=== PATIENT | male | born 1955 | race Caucasian/White ===

== ENCOUNTER 2021-03-10 19:43 | Inpatient (IN) | payer MEDICARE, OTHER ==
[~2021-03-10] VITALS: Ht 182.9 cm; Wt 87.7 kg
[~2021-03-10 19:43] MED LIST: ACET-2605 PO; ACET-868 PO; ALEN70TA3 PO; AMAN100T PO; AMIN30LI25 PO; AMLO5TAB4 PO; ASCO-352 PO; BISA10SU8 RC; CITA40TA22 PO; DALF10TA PO; DOCU-270 PO; ENOX30DI SQ; MAGN400O21 PO; MIRT30TA7 PO; MULT1TAB11 PO; NA P133E RC; NUTR1PAC14 PO; PANT40TA2 PO; TAMS-12 PO; ZINC220T4 PO
[2021-03-10] MEDS ORDERED: IV NS 0.9% 1,000 ML BAG IV ONE ×2 (20:00→21:30)
--- NOTE | 2021-03-10 20:05 | NUR ---
PATIENT CAME TO ER BED 6 BIBRA C/O LOW BLOOD PRESSURE FROM THE [facility]. PATIENT ALSO STATES THAT HE IS "FEELING SICK" PATIENT IS ALERT AND ORIENTED x3. DENIES SHORTNESS OF BREATH. PATIENT IS CONNECTED TO THE FILLER BLOCK INSERTER REMOVER.
--- NOTE | 2021-03-10 20:18 | NUR ---
COVID SWABBED, GIVEN TO COMBINATION WELDER.
--- NOTE | 2021-03-10 20:18 | NUR ---
EUCLID OPERATOR AT BEDSIDE FOR BLOOD WORK.
--- NOTE | 2021-03-10 20:19 | NUR ---
RADIOLOGY AT BEDSIDE
--- NOTE | 2021-03-10 20:47 | NUR ---
BOX TURNER AT BEDSIDE FOR BLOOD DRAW
[2021-03-10 20:57] LABS: BASOPHILS % (AUTO) 0.2 % (0.0-2.0); HEMATOCRIT 37 % (39-51); HEMOGLOBIN 11.7 g/dL (13.5-17.5); LYMPHOCYTES # (AUTO) 0.3 /CMM (0.8-4.8); MEAN CORPUSCULAR HGB CONC 32 g/dl (31.0-36.0); MEAN CORPUSCULAR VOLUME 91 fL (80-96); MONOCYTES # (AUTO) 0.2 /CMM (0.1-1.30); MONOCYTES % (AUTO) 1.2 % (2.0-12.0); NEUTROPHILS # (AUTO) 14.4 /CMM (1.8-8.9); NEUTROPHILS % (AUTO) 96.6 % (43.0-81.0); PLATELET COUNT (AUTO) 160 /CMM (150-450); RED BLOOD CELL COUNT(AUTO) 4.05 MIL/uL (4.5-6.0); WHITE BLOOD COUNT (AUTO) 14.9 K/uL (4.3-11.0)
[2021-03-10 21:09] LABS: CALCIUM, SERUM 8.8 mg/dL (8.5-10.1); CARBON DIOXIDE 20 mmol/L (21-32); CHLORIDE 103 mmol/L (98-107); CREATININE 2.8 mg/dL (0.6-1.3); GLUCOSE 106 mg/dL (74-106); POTASSIUM 3.9 mmol/L (3.5-5.1); SODIUM SERUM 137 mmol/L (136-145); UREA NITROGEN, BLOOD 49 mg/dL (7-18)
[2021-03-10 21:14] LABS: ALANINE AMINOTRANSFERASE 15 U/L (12-78); ALBUMIN 2.6 g/dL (3.4-5.0); ALKALINE PHOSPHATASE 230 U/L (46-116); ASPARTATE AMINOTRANSFERASE 24 U/L (15-37); BILIRUBIN,DIRECT 0.3 mg/dL (0.0-0.2); BILIRUBIN,TOTAL 0.6 mg/dL (0.2-1.0); TOTAL PROTEIN, SERUM 7.1 g/dL (6.4-8.2)
[2021-03-10] MEDS ORDERED: LEVOFLOXACIN 750 MG /D5W 150ML 150 ML IV ONE ×2 (21:22→21:30)
[2021-03-10] MEDS ORDERED: VANCOMYCIN 1 GM in IV D5W 250 ML IV ONE (21:30)
[2021-03-10 21:36] LABS: BILIRUBIN,URINE SMALL (NEGATIVE); COLOR,URINE DARK YELLOW (YELLOW); LEUKOCYTE ESTERASE ,URINE Large (NEGATIVE); NITRITE, URINE Negative (NEGATIVE); PROTEIN,URINE >=300 mg/dl (NEGATIVE); UGLUCOSE Negative (NEGATIVE); UROBILINOGEN,URINE 0.2 EU/dL (0.2)
[2021-03-10 21:37] LABS: PH,URINE >9.0 (5.0-8.0)
[2021-03-10 21:44] LABS: BACTERIA,URINE Many /HPF (None Seen); SQUAMOUS EPITHELIAL CELL,UR Few /HPF (None Seen)
[2021-03-10] MEDS ORDERED: VANCOMYCIN 1 GM VIAL ONE (21:47)
--- NOTE | 2021-03-10 21:50 | NUR ---
DR. MORATAYA NOTIFIED OF LOW BLOOD PRESSURE, ORDERED TO GIVE IV 1000ML OF NORMAL SALINE BOLUS. WILL CARRY OUT ORDERS.
--- NOTE | 2021-03-10 21:54 | NUR ---
PATIENT IS ITCHING FROM SITE OF LEVAQUIN. LEVAQUIN STOPPED PER DR. MORATAYA'S ORDER.
[2021-03-10] MEDS ORDERED: HYDROCODONE/APAP 5/325MG TABLET PO PRN (22:00)
[2021-03-10] MEDS ORDERED: ACETAMINOPHEN 325 MG TABLET PO PRN (22:00)
[2021-03-10] MEDS ORDERED: Z GUARD REMEDY 2 OZ OINT TP PRN (22:00)
[2021-03-10] MEDS ORDERED: TEMAZEPAM 15 MG CAPSULE PO PRN (22:00)
[2021-03-10] MEDS ORDERED: MORPHINE SULFATE INJ 2 MG/ML DISP.SYRIN IV PRN (22:00)
[2021-03-10] MEDS ORDERED: MAGNESIUM HYDROXIDE 30 ML UDC PO PRN (22:00)
[2021-03-10] MEDS ORDERED: ONDANSETRON HCL/PF 4 MG/2 ML VIAL IVP PRN (22:00)
[2021-03-10] MEDS ORDERED: MAG HYDROX/AL HYDROX/SIMETH 30 ML UDC PO PRN (22:00)
[2021-03-10] MEDS ORDERED: IV NS 0.9% 500 ML BAG IV ONE (22:30)
[2021-03-10] MEDS: IV NS 0.9% 1,000 ML IV PRN (23:06)
--- NOTE | 2021-03-10 23:06 | NUR ---
ATTEMPTED TO CALL FOR REPORT, NURSE IS NOT AVAILABLE AND IS COMING FROM [facility]. STAFF STATES THAT I WILL RECEIVE A CALLBACK.
--- NOTE | 2021-03-10 23:22 | NUR ---
REPORT GIVEN TO GENI TRIVEDI FOR SOREN.
[2021-03-10 23:30] VITALS: BP 76/52
--- NOTE | 2021-03-10 23:30 | NUR ---
NREMT NOTE ADMIT PATIENT 66 YEAR OLD MALE TO ICU UNIT FROM ER WHO CAME FROM [facility] FOR LOW BP,WITH ADMIT DIAGNOSIS: SEPSIS SECONDARY TO UTI POA,ALERT ORIENTEDX2 VERBALLY RESPONSIVE ON 4L OXYGEN VIA NASAL CANNULA, O2:98% IV SITE ARE LEFT AND RIGHT HAND ON IV HYDRATION NS 100 CC/HR,PATIENT HAD [place] SUPRAPUBIC CATHETER URINE DRAINING YELLOW BY GRAVITY,SACRUM AREA DTI AND LEFT AND RIGHT BUTTOCKS NON CARLI [place] REDNESS,LEFT HEEL PRESSURE INJURY SAFETY MEASURE IMPLEMENT BED IN LOW POSITON AND LOCKED CONTINUE TO MONITOR.
--- NOTE | 2021-03-10 23:46 | NUR ---
PATIENT TAKEN UP TO ASSIGNED ROOM FOR SOREN.
[2021-03-10 23:47] VITALS: BP 91/37
[2021-03-11] VITALS (85 sets, daily range): BP systolic 74–149; BP diastolic 26–93
--- NOTE | 2021-03-11 00:32 | NUR ---
RN NOTE RECEIVED LAB REPORT LACTIC ACID IS 4.5 NOTIFIED DNP MARIO VENEGAS WITH NO NEW ORDER CONTINUE TO MONITOR
[2021-03-11] MEDS ORDERED: NOREPINEPHRINE 8MG/250ML RTU 250 ML IV ONE (00:43)
[2021-03-11] MEDS: IV NS 0.9% 1,000 ML IV PRN ×4 (00:45→21:44)
[2021-03-11] MEDS: NOREPINEPHRINE 8 MG in IV NS 0.9% 242 ML IV PRN ×2 (00:48→17:28)
[2021-03-11] MEDS ORDERED: CEFEPIME 1 GM in IV D5W 50 ML IV SCH (01:30)
[2021-03-11] MEDS ORDERED: CEFEPIME 1 GM VIAL IV ONE (01:30)
[2021-03-11] MEDS ORDERED: CEFEPIME 1 GM VIAL ONE (01:36)
[2021-03-11 04:35] LABS: EOSINOPHILS % (AUTO) 0.1 % (0.0-6.0); HEMATOCRIT 32 % (39-51); HEMOGLOBIN 10.3 g/dL (13.5-17.5); LYMPHOCYTES # (AUTO) 0.7 /CMM (0.8-4.8); MEAN CORPUSCULAR HGB CONC 32 g/dl (31.0-36.0); MEAN CORPUSCULAR VOLUME 89 fL (80-96); MONOCYTES # (AUTO) 1.6 /CMM (0.1-1.30); MONOCYTES % (AUTO) 4.4 % (2.0-12.0); NEUTROPHILS # (AUTO) 32.9 /CMM (1.8-8.9); NEUTROPHILS % (AUTO) 93.5 % (43.0-81.0); PLATELET COUNT (AUTO) 178 /CMM (150-450); RED BLOOD CELL COUNT(AUTO) 3.61 MIL/uL (4.5-6.0)
[2021-03-11 04:52] LABS: CALCIUM, SERUM 8.5 mg/dL (8.5-10.1); CARBON DIOXIDE 21 mmol/L (21-32); CHLORIDE 105 mmol/L (98-107); CHOLESTEROL 64 mg/dL (<200); CREATININE 2.3 mg/dL (0.6-1.3); GLUCOSE 120 mg/dL (74-106); LDL 10 mg/dL (0-99); MAGNESIUM 1.8 mg/dL (1.8-2.4); PHOSPHORUS 4.1 mg/dL (2.5-4.9); POTASSIUM 4.3 mmol/L (3.5-5.1); SODIUM SERUM 138 mmol/L (136-145); THYROID STIMULATING HORMONE 1.067 uIU/mL (0.358-3.74); TRIGLYCERIDES 240 mg/dL (30-150); UREA NITROGEN, BLOOD 47 mg/dL (7-18)
[2021-03-11 04:54] LABS: HDL CHOLESTEROL < 10 mg/dL (40-60)
[2021-03-11 04:57] LABS: IRON, SERUM 6 ug/dl (50-175); TOTAL IRON BINDING CAPACITY 144 ug/dl (250-450)
[2021-03-11 05:18] LABS: WHITE BLOOD COUNT (AUTO) 35.2 K/uL (4.3-11.0)
--- NOTE | 2021-03-11 05:24 | NUR ---
RN NOTE RECEIVED LAB RESULTS WBC 35.2 NOTIFIED AINSLEY VENEGAS WITH NO NEW ORDER CONTINUE TO MONITOR.
[2021-03-11 05:59] LABS: BAND % (MANUAL) 17 % (0.0-5.0); LYMPHOCYTES % (MANUAL) 2 % (16-48); MONOCYTES % (MANUAL) 3 % (0-11.0); NEUTROPHILS % (MANUAL) 78 (42-76)
--- NOTE | 2021-03-11 06:30 | NUR ---
RN NOTE CALLED PATIENT SISTER SHAYLA AND INFORMED PATIENT SITUATION AND A NEW ORDER MIDLINE INSERTION SHE AGREES FOR THAT CONTINUE TO MONITOR.
--- NOTE | 2021-03-11 07:05 | NUR ---
RN CLOSING NOTE PATIENT REMAINS ON ALERT ORIENTED X2 ON 4L OXYGEN VIA NASAL CANNULA O2:100% ON LEVOPHED 0.07 MCG/KG ON IV HYDRATION NS 100CC/HR SUPRAPUBIC CATHETER IN PLACE URINE DRAINING YELLOW AND CLEAR NO SOB NOT ACUTE DISTRESS NOTED ALL DUE MEDS GIVEN MD ORDERED KEPT CLEAN AND DRY ALL THE TIME,ENDORSE NEXT COMING SHIFT FOR CONTINUATION OF CARE.
[2021-03-11] MEDS ORDERED: CALC1TAB30 PO (07:30)
[2021-03-11] MEDS ORDERED: FERR325T23 PO (07:30)
[2021-03-11] MEDS ORDERED: CRAN425C6 PO (07:30)
[2021-03-11] MEDS ORDERED: METO25TA20 PO (07:30)
[2021-03-11] MEDS ORDERED: AMIN30LI2 PO (07:30)
[2021-03-11] MEDS ORDERED: ONDA4TAB5 PO (07:30)
[2021-03-11] MEDS ORDERED: ATOR10TA PO (07:30)
[2021-03-11] MEDS ORDERED: POLY17PO4 PO (07:30)
[2021-03-11] MEDS ORDERED: ACET-2605 PO (07:30)
[2021-03-11] MEDS ORDERED: ASPI-1169 PO (07:30)
[2021-03-11] MEDS ORDERED: FAMO20TA8 PO (07:30)
[2021-03-11] MEDS ORDERED: SENN-261 PO (07:30)
[2021-03-11] MEDS ORDERED: CRAN3875 PO (07:31)
--- NOTE | 2021-03-11 07:59 | NUR ---
WOUND CARE CONSULT: PT PRESENTS WITH SACRAL AND BUTTOCK SCARRING, INCONTINENCE ASSOCIATED SKIN DAMAGE TO LOWER BUTTOCKS, RT HEEL AND LEFT ANKLE WOUNDS, PRESENT O ADMISSION. RECOMMEND DPM CONSULT. DR REED NOTIFIED OF CONSULT REQUEST. RECOMMENDATIONS MADE FOR SKIN PROTECTION. DISCUSSED WITH NURSING STAFF. MD IN AGREEMENT WITH PLAN OF CARE.
--- NOTE | 2021-03-11 08:00 | NUR ---
RN NOTES PATIENT SEEN AWAKE A/O X3, GIVEN QUESTIONS RIGHT ANSWERS, VERBALIZED UNDERSTANDING, VSS . BEDSIDE TELE MONITOR SHOWS SR , INFUSING NS AT 100 ML/HR, AND LEVOPHED 0.07 MCG/KG/HR INTACT. PATIENT HAS SUPRAPUBIC CATHETER DRAINING WELL. PATIENT HAS CONSENT SWALLOW EVALUATION , AND WOUND CONSULT. ALSO GETTING KIDNEY US AT THIS TIME. PATIENT MINIMAL ASSIST TURN AND REPOSTION IN THE BED. DUE MEDICATION ADMINISTERED, SUCTION, MOUTH CARE DONE. CALL LIGHT WITHIN TO REACH. WILL MONITORING.
[2021-03-11] MEDS: CLOTRIMAZOLE 1% 15 GM TUBE TP SCH ×2 (09:12→17:22)
[2021-03-11] MEDS: PANTOPRAZOLE 40 MG VIAL IV SCH (09:13)
[2021-03-11] MEDS: HEPARIN SODIUM, PORCINE 5000 UNITS/1 ML VIAL SQ SCH ×2 (09:15→21:08)
--- NOTE | 2021-03-11 09:30 | NUR ---
RN NOTES PATIENT HAS SWALLOW EVALUATION AT THIS TIME,PASSED, AND WILL BE SOFT DIET PER SE NURSE..
[2021-03-11] MEDS: HYDROCORTISONE SOD SUCCINATE 100 MG/2 ML VIAL IV SCH ×3 (09:39→21:07)
[2021-03-11 11:05] LABS: ABG BASE EXCESS -6.3 mmol/L; ABG OXYGEN SATURATION 98.2 % (92.0-98.5); ABG PCO2 26.7 mmHg (35.0-45.0); ABG PO2 111.2 mmHg (75.0-100.0); AaDO2 114.5 mmHg; COHb 0.2 % (0.5-1.5); MetHb 0.3 % (0.0-1.5); O2Hb 97.7 % (94.0-97.0); SITE, ABG Left Radial
[2021-03-11] MEDS: CEFEPIME 2 GM in IV D5W 100 ML IV SCH ×2 (11:10→23:10)
--- NOTE | 2021-03-11 11:17 | NUR ---
RN NOTES SEEN WOUND MD DR HUNTLEY PATIENT NEED WOUND DEBRIDEMENT, CONSENT SIGNED VIA PATIENT.
--- NOTE | 2021-03-11 11:44 | NUR ---
RN NOTES SEEN PATIENT VIA HOSPITALIST Dr SPENCE TO GET CONTINUED HOSPITALIZATION.
[2021-03-11] MEDS: FLUDROCORTISONE 0.1 MG TABLET PO SCH ×2 (12:41→17:21)
[2021-03-11] MEDS: VANCOMYCIN 1 GM in IV D5W 250 ML IV SCH (15:32)
--- NOTE | 2021-03-11 16:15 | NUR ---
rn notes Picc line inserted via STOCK SHEETS CLEANER INSPECTOR Damian right upper arm 3 lumen, intact.
--- NOTE | 2021-03-11 16:34 | NUR ---
rn notes increased Levophed infusion 0.08 mcg/kg/hr bp 86/50, p-98, r-23. will monitoring.
--- NOTE | 2021-03-11 18:26 | NUR ---
RN NOTES PM CARE DONE, DUE MEDICATION ADMINISTERED, ASSIST EATING. PATIENT TOLERATED DINNER 100% , NO ACUTE RESPIRATORY DISTRESS, ASSIST TURN AND REPOSTION Q 2 HR. INFUSING NS @ 100ML/HR ON KRISTEN PICC LINE, AND LEVOPHED 0.08 MCG/KG/HR INTACT. CALL LIGHT WITHIN TO REACH. PATIENT REFUSED PAIN, SUPRAPUBIC CATH INFUSING YELLOW OUTPUT WITH WHITE SEDIMENTS. ENDORSED ONCOMING NURSE FOLLOW PLAN OF CARE.
--- NOTE | 2021-03-11 19:20 | NUR ---
ICU/CHARGE MACHINE OPERATOR RECIEVED REPORT FROM DAY NURSE. SEE FLOWSHEET FOR ASSESSMENT. SEE IV SPREAD SHEET FOR IV'S. PT HAS CALL LIGHT NO ACUTE DISTRESS SEEN. WILL MONITOR THIS PT.
--- NOTE | 2021-03-11 21:29 | NUR ---
ICU/COKE WORKER REPORT GIVEN TO SHIKHA BRINK FOR CONTINUATIVE CARE.
[2021-03-12] VITALS (82 sets, daily range): BP systolic 84–166; BP diastolic 27–93
[2021-03-12] MEDS: FLUDROCORTISONE 0.1 MG TABLET PO SCH ×4 (00:21→17:10)
[2021-03-12 04:32] LABS: BASOPHILS % (AUTO) 0.1 % (0.0-2.0); EOSINOPHILS % (AUTO) 0.3 % (0.0-6.0); HEMATOCRIT 27 % (39-51); LYMPHOCYTES # (AUTO) 0.7 /CMM (0.8-4.8); LYMPHOCYTES % (AUTO) 3.2 % (20.0-44.0); MEAN CORPUSCULAR HGB CONC 33 g/dl (31.0-36.0); MEAN CORPUSCULAR VOLUME 89 fL (80-96); MONOCYTES # (AUTO) 1.6 /CMM (0.1-1.30); MONOCYTES % (AUTO) 6.9 % (2.0-12.0); NEUTROPHILS % (AUTO) 89.5 % (43.0-81.0); PLATELET COUNT (AUTO) 147 /CMM (150-450); RED BLOOD CELL COUNT(AUTO) 3.08 MIL/uL (4.5-6.0); WHITE BLOOD COUNT (AUTO) 23.5 K/uL (4.3-11.0)
[2021-03-12 04:56] LABS: ALANINE AMINOTRANSFERASE 15 U/L (12-78); ALKALINE PHOSPHATASE 160 U/L (46-116); ASPARTATE AMINOTRANSFERASE 23 U/L (15-37); BILIRUBIN,TOTAL 0.3 mg/dL (0.2-1.0); CARBON DIOXIDE 21 mmol/L (21-32); CHLORIDE 109 mmol/L (98-107); CREATININE 1.8 mg/dL (0.6-1.3); GLUCOSE 186 mg/dL (74-106); MAGNESIUM 2.1 mg/dL (1.8-2.4); PHOSPHORUS 2.1 mg/dL (2.5-4.9); POTASSIUM 3.6 mmol/L (3.5-5.1); SODIUM SERUM 139 mmol/L (136-145); TOTAL PROTEIN, SERUM 6.2 g/dL (6.4-8.2); UREA NITROGEN, BLOOD 43 mg/dL (7-18)
[2021-03-12] MEDS: HYDROCORTISONE SOD SUCCINATE 100 MG/2 ML VIAL IV SCH ×3 (05:29→21:29)
--- NOTE | 2021-03-12 06:45 | NUR ---
RN NOTES NO SIGNIFICANT CHANGES THROUGHOUT THE SHIFT. BREATHING EVEN AND UNLABORED ON ROOM AIR. CONT. ON LOW DOSE OF LEVOPHED. . IV SITE ON RA PICC LINE REMAINED INTACT AND PATENT. IVF ONGOING ORDERED. WAITING FOR LLE WOUND DEBRIDEMENT. KEPT PT CLEAN AND DRY. WILL ENDORSED CONT. OF CARE TO AM NURSE.
--- NOTE | 2021-03-12 08:00 | NUR ---
RN NOTES RECEIVED PATIENT IN THE BED SLEEPING. NO ACUTE RESPIRATORY DISTRESS, BP-122/93, P-74. INFUSING NS AT 100 ML/HR ON RIGHT UA PICC LINE, AND DIPRIVAN 0.04 MCG/KG/HR INTACT, FLASHED LINE WITH NS. CALL LIGHT WITHIN TO REACH.SUPRAPUBIC CATHETER DRAINING YELLOW OUTPUT. WILL MONITORING. Addendum: 03/12/21 at 1434 by JENNY VOGT RN medication infusing wrong eatery Levophed 0.04 mcg/kg/hr.
--- NOTE | 2021-03-12 08:20 | NUR ---
rn notes held levophed dip at this ronald because bp 122/93, p-75, r-12. patient denied pain, assist eating breakfast. tolerated 100 %. assist turn and reposition q 2 hr. due medication administered will monitoring.
[2021-03-12] MEDS: PANTOPRAZOLE 40 MG VIAL IV SCH (08:48)
[2021-03-12] MEDS: HEPARIN SODIUM, PORCINE 5000 UNITS/1 ML VIAL SQ SCH ×2 (08:49→21:32)
[2021-03-12] MEDS: CLOTRIMAZOLE 1% 15 GM TUBE TP SCH ×2 (08:50→16:17)
[2021-03-12] MEDS: THERAHONEY GEL 1.5 OZ TUBE TP SCH (08:51)
[2021-03-12] MEDS: VANCOMYCIN 1 GM in IV D5W 250 ML IV SCH (08:54)
[2021-03-12] MEDS: IV NS 0.9% 1,000 ML IV PRN ×2 (09:00→20:47)
--- NOTE | 2021-03-12 09:00 | NUR ---
SHIKHA NOTES RESTARTED DIPRIVAN 0.04 MCG/KG/HR ON RIGHT PICC LINE AT THIS TIME BECAUSE DROP BP 86//55, P-90, R-17. Addendum: 03/12/21 at 1436 by JENNY VOGT RN medication is Levophed 0.04mcg/kg/hr
--- NOTE | 2021-03-12 10:00 | NUR ---
rn notes decreased infusion of Diprivan 0.03 mcg/kg/hr at this time, no complaining of pain, respiration even, unlabored, bp 113/75. p-65. will monitoring.
[2021-03-12] MEDS: CEFEPIME 2 GM in IV D5W 100 ML IV SCH ×2 (12:57→22:49)
--- NOTE | 2021-03-12 13:28 | NUR ---
rn notes get call from lab about cortisol level 65.8. hospitalist Dr Luz notified.
[2021-03-12] MEDS ORDERED: NEUTRA PHOS 1 POWD.PACKET PO ONE (16:00)
--- NOTE | 2021-03-12 17:45 | NUR ---
rn notes held Levophed at this time bp 121/75, p-71. assist patient eating dinner, tolerated 100%.
--- NOTE | 2021-03-12 18:38 | NUR ---
rn notes Patient pm care done, brush teeth, due medication administered, infusing NS at 100 ml/hr on right PICC line intact. BP-95/61, p-81, patient resting in the bed. suprapubic cath draining via gravity output was 875 ml. patient denied pain at this time. call light within to reach. assist turn a nd repostion in the x2hr. Endorsed oncoming nurse follow plan of care.
--- NOTE | 2021-03-12 19:45 | NUR ---
ICU/ARCHITECTURAL DESIGN LECTURER RECIEVED REPORT FROM DAY NURSE. SEE FLOWSHEET FOR ASSESSMENT. SEE IV SPREAD SHEET FOR IV'S. PT HAS CALL LIGHT NO ACUTE DISTRESS SEEN. WILL MONITOR THIS PT.
[2021-03-12] MEDS: MUPIROCIN OINT 2% 22 GM TUBE NS SCH (21:28)
--- NOTE | 2021-03-12 21:57 | NUR ---
ICU/UNDERWEAR CUTTER PT IS TO HAVE WOUND DEBRIDEMENT TOMORROW, PT HAS HEPARINE SQ TONIGHT AND TOMORROW. CALLED THE BALL ENDER MD FIELDS ABOUT IF IT SHOULD BE GIVEN OR HELD TONIGHT. DONNIE SAID YES GIVE IT TONIGHT BUT HOLD IT FOR TOMORROW THE DAY OF THE DEBRIDEMENT.
--- NOTE | 2021-03-12 23:20 | NUR ---
ICU/AIRCRAFT GENERAL REPAIR MECHANIC PT WAS TURNED AND REPOSITIONED FOR COMFORT AND CARE. PT TOLERATED THIS WELL.CALL LIGHT WITHIN REACH. PT REMAINS ON ROOM AIR, WITH SATURATION IS AT 96%, NO DISTRESS SEEN.
[2021-03-13] VITALS (29 sets, daily range): BP systolic 88–158; BP diastolic 30–94
[2021-03-13] MEDS: FLUDROCORTISONE 0.1 MG TABLET PO SCH ×5 (00:06→23:51)
--- NOTE | 2021-03-13 02:10 | NUR ---
ICU/HIGHWAY SAFETY ENGINEER PT WAS TURNED AND REPOSITIONED AFTER, PT WAS PROVIDED ORAL CARE. PT TOLERATED THIS WELL.PT REMAINS ON ROOM AIR WITH SATURATION AT 96% WHILE ON ROOM AIR. WILL CONTINUE TO MONITOR THIS PT.
[2021-03-13 04:25] LABS: BASOPHILS % (AUTO) 0.1 % (0.0-2.0); EOSINOPHILS % (AUTO) 0.1 % (0.0-6.0); HEMATOCRIT 25 % (39-51); HEMOGLOBIN 8.2 g/dL (13.5-17.5); LYMPHOCYTES # (AUTO) 0.6 /CMM (0.8-4.8); LYMPHOCYTES % (AUTO) 4.8 % (20.0-44.0); MEAN CORPUSCULAR HGB CONC 33 g/dl (31.0-36.0); MEAN CORPUSCULAR VOLUME 88 fL (80-96); MONOCYTES # (AUTO) 0.7 /CMM (0.1-1.30); MONOCYTES % (AUTO) 5.4 % (2.0-12.0); NEUTROPHILS # (AUTO) 11.3 /CMM (1.8-8.9); NEUTROPHILS % (AUTO) 89.6 % (43.0-81.0); PLATELET COUNT (AUTO) 140 /CMM (150-450); RED BLOOD CELL COUNT(AUTO) 2.81 MIL/uL (4.5-6.0); WHITE BLOOD COUNT (AUTO) 12.7 K/uL (4.3-11.0)
--- NOTE | 2021-03-13 04:35 | NUR ---
ICU/SALES UTILITY REPRESENTATIVE PT WAS GIVEN AM CARE AT THIS TIME. PT WAS THEN TURNED AND REPOSITIONED FOR COMFORT AND CARE. PT TOLERATED THIS WELL. PT REMAINS ON ROOM AIR. CALL LIGHT WITHIN REACH. WILL CONTINUE TO MONITOR THIS PT.
[2021-03-13 04:40] LABS: CALCIUM, SERUM 7.7 mg/dL (8.5-10.1); CREATININE 1.6 mg/dL (0.6-1.3); MAGNESIUM 1.9 mg/dL (1.8-2.4); PHOSPHORUS 2.1 mg/dL (2.5-4.9); POTASSIUM 3.8 mmol/L (3.5-5.1)
[2021-03-13] MEDS: HYDROCORTISONE SOD SUCCINATE 100 MG/2 ML VIAL IV SCH (05:12)
[2021-03-13] MEDS: IV NS 0.9% 1,000 ML IV PRN (05:12)
--- NOTE | 2021-03-13 06:29 | NUR ---
ICU/ENTRY LEVEL TRUCK DRIVER AM LABS WERE DONE. PT TO HAVE DEBRIDEMENT DONE TODAY TO LEFT LOWER EXTREMITY. CONSENT IS SIGNED.
--- NOTE | 2021-03-13 07:40 | NUR ---
ENTRY LEVEL FINANCIAL ANALYST NOTE PATIENT IN BED , ALERT ORIENTED X2 , ON RA NO SOB NOTED AT THIS TIME , ON TELE MONITOR SR HR 64 , RT UPPER ARM PICC LINE IN PLACE AND FLUSHED WELL , ON IVF ORDERED , FED PATIENT ,ATE 100% OF DIET ,WITH SUPRAPUBIC CATH IN PLACE WITH YELLOW CLOUDY URINE NOTED ,BED IN LOWEST AND LOCKED POSITION,NO SOB NOTED AT THIS TIME,PLAN OF CARE DISCUSSED WITH PATINT , WILL CONT TO MONITOR CLOSELY
[2021-03-13] MEDS: PANTOPRAZOLE 40 MG VIAL IV SCH (08:15)
[2021-03-13] MEDS: MUPIROCIN OINT 2% 22 GM TUBE NS SCH ×2 (08:15→21:51)
[2021-03-13] MEDS: CLOTRIMAZOLE 1% 15 GM TUBE TP SCH ×2 (08:16→16:02)
[2021-03-13] MEDS: HEPARIN SODIUM, PORCINE 5000 UNITS/1 ML VIAL SQ SCH ×2 (08:16→21:50)
[2021-03-13] MEDS: THERAHONEY GEL 1.5 OZ TUBE TP SCH (08:24)
[2021-03-13] MEDS: NEUTRA PHOS 1 POWD.PACKET PO SCH ×2 (08:35→15:43)
--- NOTE | 2021-03-13 09:14 | NUR ---
INTERNET SPECIALIST NOTE CALLED TO [facility] [employer], LEFT A MESSAGE TO BRING DVT PUMPS FOR PATIENT
--- NOTE | 2021-03-13 09:45 | NUR ---
agricultural extension educator note called to [facility] about covid and pna vaccine, informed that covid vaccine done on 11/08/2020 and pna vaccine refused
[2021-03-13] MEDS: CEFEPIME 2 GM in IV D5W 100 ML IV SCH ×2 (10:32→23:51)
--- NOTE | 2021-03-13 11:09 | NUR ---
HOOP MAKER MACHINE NOTE DR SPENCE AT BEDSIDE NOTIFIED CURRENT BP 89/50 STATED STILL OK NO NEW ORDER GIVEN AT THIS TIME
--- NOTE | 2021-03-13 12:16 | NUR ---
MANAGER PLANNING NOTE THOMAS SPECIAL DELIVERY WORKER STOCKROOM INVENTORY CLERK AT BEDSIDE, UPDATED PATIENT CONDITION
--- NOTE | 2021-03-13 12:31 | NUR ---
U.S. REVENUE OFFICER NOTE DR ASH FOOT DOCTOR AT BEDSIDE ,LT HEEL DEBREDEMENT DONE , KEEP CLEAN DRY ,OFF PRESSURE
[2021-03-13] MEDS: SOD FERRIC GLUC 125 MG in IV NS 0.9% 100 ML IV SCH (13:49)
--- NOTE | 2021-03-13 15:00 | NUR ---
TECHNICAL PROJECT LEAD NOTE ROUNDS MADE , ALL NEEDS ATTENDED, TURN REPOSITION Q2 HOUR , NOT IN DISTRESS, NO SOB NOTED ,ON RA ,WILL CONT TO MONITOR CLOSELY
--- NOTE | 2021-03-13 17:30 | NUR ---
MACHINE JOINER CEMENTER NOTE CHARGE NURSE AWARE THAT PATIENT HAS ORDER TO TRANSFER TO TELE UNIT , WILL F\U, ALL NEEDS ATTENDED ,RT UPPER ARM PICC LINE IN PLACE , WILL CONT TO MONITOR CLOSELY
--- NOTE | 2021-03-13 18:42 | NUR ---
THIN FILM TECHNICIAN NOTE PATINT IN BED ,ALERT AWAKE ON TELE MONITOR SR, WITH SUPRAPUBIC CATH IN PLACE WITH YELLOE CLOUDY URINE DR SPENCE AWARE OF IT , RT UPPER ARM PICC LINE I PLACE AND FLUSHED WELL ,WILL CONT TO MONITOR CLOSELY
--- NOTE | 2021-03-13 20:22 | NUR ---
auricular acupuncturist. initial assessment. received the pt rest on the bed.awake, alert.follow commands.digital strategist showing nsr. iv rt upper arm picc line. saline lock. digital strategist showing nsr. pt on room air. sat 99%.no acute distress noted. supra pubic cath intact. hob elevated. willcontinue to monitor vitals.
[2021-03-14] VITALS (10 sets, daily range): BP systolic 104–129; BP diastolic 9–86
[2021-03-14 04:21] LABS: BASOPHILS % (AUTO) 0.1 % (0.0-2.0); EOSINOPHILS % (AUTO) 4.2 % (0.0-6.0); HEMATOCRIT 26 % (39-51); HEMOGLOBIN 8.4 g/dL (13.5-17.5); LYMPHOCYTES # (AUTO) 1.2 /CMM (0.8-4.8); LYMPHOCYTES % (AUTO) 16.4 % (20.0-44.0); MEAN CORPUSCULAR HGB CONC 33 g/dl (31.0-36.0); MEAN CORPUSCULAR VOLUME 89 fL (80-96); MONOCYTES # (AUTO) 0.9 /CMM (0.1-1.30); MONOCYTES % (AUTO) 12.7 % (2.0-12.0); NEUTROPHILS # (AUTO) 4.9 /CMM (1.8-8.9); NEUTROPHILS % (AUTO) 66.6 % (43.0-81.0); PLATELET COUNT (AUTO) 164 /CMM (150-450); RED BLOOD CELL COUNT(AUTO) 2.87 MIL/uL (4.5-6.0); WHITE BLOOD COUNT (AUTO) 7.3 K/uL (4.3-11.0)
[2021-03-14 04:36] LABS: ALBUMIN 1.8 g/dL (3.4-5.0); BILIRUBIN,TOTAL 0.3 mg/dL (0.2-1.0); CALCIUM, SERUM 7.7 mg/dL (8.5-10.1); CREATININE 1.3 mg/dL (0.6-1.3); MAGNESIUM 1.9 mg/dL (1.8-2.4); PHOSPHORUS 2.2 mg/dL (2.5-4.9); POTASSIUM 3.2 mmol/L (3.5-5.1); TOTAL PROTEIN, SERUM 5.4 g/dL (6.4-8.2)
--- NOTE | 2021-03-14 04:47 | NUR ---
forester silviculture.am care. oral care. bed bath given.linen changed. pt is still room air. sat 98%.no acute distress noted.pt slept well during shift. hob elevated. supra pubic cath intact.. afebrile.hob elevated. turn and reposition q2h.willcontinue tomonitor vitals
--- NOTE | 2021-03-14 04:54 | NUR ---
commercial horticulture instructor.labcalled for blood culture 1st bottle gram negative rode. notified ronald [place]
[2021-03-14] MEDS: FLUDROCORTISONE 0.1 MG TABLET PO SCH (05:28)
--- NOTE | 2021-03-14 06:25 | NUR ---
silviculture forester. transfer the pt to tele room 110. report given to srinath TRIVEDI,pt is stable.
--- NOTE | 2021-03-14 06:35 | NUR ---
PRINTED CIRCUIT BOARD PCB DESIGNER NOTES REC'D PT IN BED FROM ICU, REPORT GIVEN BY DEAN TRIVEDI. PT IS A/OX2. PT IS ON ROOM AIR. TOLERATING WELL. NO S/S OF SOB OR RESP DISTRESS. TOLERATING WELL. SATURATION O2 IS 99%. PT IS ON TELE MONITORING PRESENTS WITH NSR WITH HR 77 AT THIS TIME. NO DISTRESS NOTED. PT DENIES PAIN. IV SITE PICC LINE FLUSHED ASEPTICALLY. ONE PORT NOT IN USE, CLOGGED. OTHER 2 PORTS PATENT. PT AFEBRILE. ALL NEEDS ATTENDED. SAFETY MEASURES IN PLACE. HOB ELEVATED. SIDE RAILS UP X2 BED LOCKED IN LOWEST POSITION BED ALARM ON. CALL LIGHT WITHIN REACH. WILL ENDORSE TO DAY SHIFT RN FOR CONTINUATION OF CARE
--- NOTE | 2021-03-14 07:30 | NUR ---
RN OPENING NOTE PT A/Ox3, BREATHING RA SPO2 99%, NO S/S OF RESP DISTRESS OR SOB. PT DENIES PAIN. PT HAS KRISTEN PICC LINE 2 OF 3 PIGTAILS PATENT, FLUSHED, ALL PIGTAILS WITH NO SIGNS OF INFECTION OR INFILTRATION, CURRENTLY SL. PT ON TELEBOX NSR 70s. PT HAS SUPRAPUBIC CATHETER DRAINING CLOUDY WINDY URINE TO GRAVITY. PT LT HEEL WOUND WAS DEBRIDED 03/13/21, GALEN CDI, SACRAL SCAR NOTED AND COVERED IN MEPILEX. PT POTASSIUM OF 3.2 NOTED, DR SPENCE AWARE, KCL AND NEUTRAPHOS ORDERED. ALL PT SAFETY PRECAUTIONS IN PLACE, WILL CONT TO MONITOR
[2021-03-14] MEDS ORDERED: POTASSIUM CHLORIDE 20 MEQ TAB.PRT.SR PO ONE (08:00)
[2021-03-14] MEDS ORDERED: NEUTRA PHOS 1 POWD.PACKET PO ONE (08:00)
[2021-03-14 08:06] LABS: PTH, INTACT 77 pg/mL (15-65)
[2021-03-14] MEDS: PANTOPRAZOLE 40 MG VIAL IV SCH (09:40)
[2021-03-14] MEDS: HEPARIN SODIUM, PORCINE 5000 UNITS/1 ML VIAL SQ SCH (09:40)
[2021-03-14] MEDS: THERAHONEY GEL 1.5 OZ TUBE TP SCH (09:41)
[2021-03-14] MEDS: CLOTRIMAZOLE 1% 15 GM TUBE TP SCH ×2 (09:41→17:33)
[2021-03-14] MEDS: MUPIROCIN OINT 2% 22 GM TUBE NS SCH (09:41)
[2021-03-14 11:07] LABS: *SPE A/G RATIO 0.7 (0.7-1.7); *SPE ALBUMIN 2.2 g/dL (2.9-4.4); *SPE ALPHA-1-GLOBULIN 0.4 g/dL (0.0-0.4); *SPE ALPHA-2-GLOBULIN 0.8 g/dL (0.4-1.0); *SPE BETA GLOBULIN 0.7 g/dL (0.7-1.3); *SPE M-SPIKE Not Observed g/dL (Not Observed); *SPEGAMMA GLOBULIN 1.1 g/dL (0.4-1.8)
[2021-03-14] MEDS: CEFEPIME 2 GM in IV D5W 100 ML IV SCH (11:57)
[2021-03-14] MEDS: SOD FERRIC GLUC 125 MG in IV NS 0.9% 100 ML IV SCH (13:18)
--- NOTE | 2021-03-14 19:19 | NUR ---
RN CLOSING NOTE PT IN STABLE CONDITION AND AWAITING DISCHARGE. ALL PT SAFETY PRECAUTIONS IN PLACE. SOREN ENDORSED TO WINE STEWARD RN
--- NOTE | 2021-03-14 19:48 | NUR ---
television servicer notes Patient was picked up by [facility] with 2 emt , report and discharge papers given to emt . going to [facility] , report given to georgi rn , patient v/s stable afebrile , picc line on sierra intact and patent did not removed d/t pts will continue on iv atb , pts left the hospital at 1950 hrs.
== END 2021-03-14 19:50 | DRG 853 ==
LOC: ER 19:45 → ICU 23:00 → TELE1 03-14 05:42
PROVIDERS: ADMIT Nurse Practitioner Acute Care
PROC: 02HV33Z Insertion of Infusion Device into Superior Vena Cava, Percutaneous Approach (ICD-10-PCS; 2021-03-11)
PROC: B548ZZA Ultrasonography of Superior Vena Cava, Guidance (ICD-10-PCS; 2021-03-11)
PROC: 0JBR0ZZ Excision of Left Foot Subcutaneous Tissue and Fascia, Open Approach (ICD-10-PCS; principal; 2021-03-13)
DX: A41.9 Sepsis, unspecified organism (principal); L89.623 Pressure ulcer of left heel, stage 3; I21.A1 Myocardial infarction type 2; N17.0 Acute kidney failure with tubular necrosis; R65.21 Severe sepsis with septic shock; J69.0 Pneumonitis due to inhalation of food and vomit; D68.59 Other primary thrombophilia; E44.0 Moderate protein-calorie malnutrition; I13.0 Hypertensive heart and chronic kidney disease with heart failure and stage 1 through stage 4 chronic kidney disease, or unspecified chronic kidney disease; N39.0 Urinary tract infection, site not specified; E87.2 Acidosis; J98.11 Atelectasis; N13.8 Other obstructive and reflux uropathy; N13.6 Pyonephrosis; E87.4 Mixed disorder of acid-base balance; E11.22 Type 2 diabetes mellitus with diabetic chronic kidney disease; D63.8 Anemia in other chronic diseases classified elsewhere; Z20.822 Contact with and (suspected) exposure to COVID-19; I50.9 Heart failure, unspecified; G20 Parkinson's disease; I48.91 Unspecified atrial fibrillation; K21.9 Gastro-esophageal reflux disease without esophagitis; E78.5 Hyperlipidemia, unspecified; M81.0 Age-related osteoporosis without current pathological fracture; M20.42 Other hammer toe(s) (acquired), left foot; M20.41 Other hammer toe(s) (acquired), right foot; N18.9 Chronic kidney disease, unspecified; N31.9 Neuromuscular dysfunction of bladder, unspecified; Z88.0 Allergy status to penicillin; Z88.2 Allergy status to sulfonamides; Z79.83 Long term (current) use of bisphosphonates; Z79.899 Other long term (current) drug therapy; Z74.01 Bed confinement status; M89.9 Disorder of bone, unspecified; N40.0 Benign prostatic hyperplasia without lower urinary tract symptoms; Z79.01 Long term (current) use of anticoagulants; G35 Multiple sclerosis; N13.9 Obstructive and reflux uropathy, unspecified; R09.02 Hypoxemia; E11.621 Type 2 diabetes mellitus with foot ulcer; L97.509 Non-pressure chronic ulcer of other part of unspecified foot with unspecified severity; F32.9 Major depressive disorder, single episode, unspecified; E86.0 Dehydration; B96.20 Unspecified Escherichia coli [E. coli] as the cause of diseases classified elsewhere; B96.4 Proteus (mirabilis) (morganii) as the cause of diseases classified elsewhere; L89.516 Pressure-induced deep tissue damage of right ankle; M62.562 Muscle wasting and atrophy, not elsewhere classified, left lower leg; M62.561 Muscle wasting and atrophy, not elsewhere classified, right lower leg
CPT/HCPCS: 36415; 36600; 71045-TC; 76770-TC; 80048-TC; 80053-TC; 80061-TC; 80076-TC; 80202-TC; 81001; 82533; 82803-TC; 83540-TC; 83605-TC; 83735-TC; 83970; 84100-TC; 84155; 84165; 84443-TC; 84484-TC; 85025-TC; 85730-TC; 87040-TC; 87081-TC; 87086-TC; 87186-TC; 92526; 92611-TC; 93307-TC; A6253; A6403; C9113; C9803; G0378; J0692; J1644; J1720; J1956; J2916; J3370; J7030; J7050; J7060; J7120